=== PATIENT | male | born 1990 | race American Indian/Alaskan Native ===

== ENCOUNTER 2016-10-01 08:03 | Emergency (ER) | payer SELFPAY ==
[2016-10-01 08:16] VITALS: BP 148/97
--- NOTE | 2016-10-01 08:30 | Emergency Department Report ---
HPI - General Chief Complaint: Urogenital-Male Time Seen by Provider: 10/01/16 08:18 - HPI HPI: 25-year-old male presents today stating that he thinks he has chlamydia. Positive for unprotected sex and his sex partner has recently been diagnosed with chlamydia. Positive for history of chlamydia. Complaining of bilateral testicular pain, burning upon urination 1.5 weeks. Admits to having minimal white discharge. Denies blood in urine, increased urinary frequency or urgency. Denies fever, chills, nausea, vomiting, chest pain, shortness of breath, abdominal pain. ED Past Medical Hx - Past Medical History Hx Hypertension: Yes Hx Psychiatric Treatment: Yes (Bipolar, Schizophrenia) Additional medical history: schizphrenia - Surgical History Past Surgical History?: No - Social History Smoking Status: Current Every Day Smoker Substance Use Type: Alcohol - Medications Home Medications: Home Medications Medication Instructions Recorded Confirmed Last Taken Type Acetaminophen/Codeine [Tylenol #3] 1 tab PO Q6H PRN #25 tab 03/19/15 Unknown Rx Ibuprofen [Motrin] 600 mg PO Q8H PRN #50 tablet 03/19/15 Unknown Rx Phenazopyridine [Pyridium] 200 mg PO Q8H #9 tab 08/24/15 Unknown Rx metroNIDAZOLE [Flagyl] 500 mg PO Q8HR #21 tablet 08/24/15 Unknown Rx Acetamin/Codeine 120-12Mg/5 ml 10 ml PO TID PRN #60 ml 11/06/15 Unknown Rx [Tylenol/Codeine] Amoxicillin [Amoxicillin TAB] 875 mg PO BID #20 tablet 11/06/15 Unknown Rx ED Review of Systems ROS: Stated complaint: POSS STD Other details as noted in HPI Constitutional: denies: chills, fever, malaise Eyes: denies: eye pain ENT: denies: ear pain, throat pain, congestion Respiratory: denies: cough, shortness of breath, wheezing Cardiovascular: denies: chest pain, palpitations Endocrine: no symptoms reported Gastrointestinal: denies: abdominal pain, nausea, vomiting Genitourinary: dysuria, discharge, testicular pain. denies: urgency, frequency , hematuria, testicular mass Musculoskeletal: denies: back pain Skin: denies: rash Neurological: denies: headache, weakness Physical Exam - Physical Exam Vital Signs: Vital Signs 10/01/16 08:13 Temperature 98.8 F Pulse Rate 68 Respiratory 16 Rate Blood Pressure 148/97 Blood Pressure 148/97 [Left] O2 Sat by Pulse 98 Oximetry Physical Exam: GENERAL: The patient is well-developed and well-nourished. Patient is in NAD. HEAD: Normocephalic. Atraumatic. CHEST/LUNGS: Clear to auscultation throughout. HEART/CARDIOVASCULAR: Regular rate and rhythm. No murmurs, rubs or gallops. ABDOMEN: Abdomen is soft, nontender. No guarding or rebound tenderness. Negative for CVA tenderness bilaterally. GENITALS: Normal external genitalia. No testicular tenderness to palpation bilaterally. No discharge or bleeding noted. EXTREMITIES: Peripheral pulses intact. Capillary refill less than 2 seconds. NEURO: Alert and oriented x 3. Normal gait. ED Course Vital Signs 10/01/16 08:13 Temperature 98.8 F Pulse Rate 68 Respiratory 16 Rate Blood Pressure 148/97 Blood Pressure 148/97 [Left] O2 Sat by Pulse 98 Oximetry ED Medical Decision Making - Lab Data Vital Signs 10/01/16 08:13 Temperature 98.8 F Pulse Rate 68 Respiratory 16 Rate Blood Pressure 148/97 Blood Pressure 148/97 [Left] O2 Sat by Pulse 98 Oximetry Lab Results 10/01/16 Range/Units 08:50 Urine Color Yellow (Yellow) Urine Turbidity Clear (Clear) Urine pH 5.0 (5.0-7.0) Ur Specific [place] 1.026 (1.003-1.030) Urine Protein <15 mg/dl (Negative) mg/dL Urine Glucose (UA) Neg (Negative) mg/dL Urine Ketones Tr (Negative) mg/dL Urine Blood Neg (Negative) Urine Nitrite Neg (Negative) Urine Bilirubin Neg (Negative) Urine Urobilinogen 2.0 (<2.0) mg/dL Ur Leukocyte Esterase Neg (Negative) Urine WBC (Auto) 8.0 H (0.0-6.0) /HPF Urine RBC (Auto) 6.0 (0.0-6.0) /HPF Urine Mucus Few /HPF - Radiology Data Radiology results: report reviewed ULTRASOUND SCROTAL INDICATION: Testicular pain. COMPARISON: 08/13/2013. FINDINGS: Longitudinal and transverse grayscale and color flow sonographic evaluation of the scrotum and its contents demonstrates normal testicular contour and echotexture bilaterally without suspicious intrinsic lesions. Preserved bilateral blood flow. Right testicle estimated at 4.6 x 1.9 x 2.8 cm while the left testicle is 4.2 x 2 x 2.7 cm. No significant hydrocele. Normal bilateral epididymi, measuring 7-8 mm. CONCLUSION: No acute testicular sonographic abnormality, as described. - Medical Decision Making 25-year-old male presents today with testicular pain, dysuria, penile discharge post exposure to chlamydia. His urinalysis reveals mildly elevated WBC. His scrotal ultrasound is unremarkable. Patient has been treated with azithromycin and ceftriaxone today. Patient is in no acute distress at this time. He will be discharged home and is encouraged to follow up with a primary care provider. E is encouraged to return to the emergency room for any worsening symptoms. Critical care attestation.: If time is entered above; I have spent that time in minutes in the direct care of this critically ill patient, excluding procedure time. ED Disposition Clinical Impression: Testicular pain, Penile discharge, Exposure to chlamydia Disposition: DISCHARGED TO HOME OR SELFCARE Is pt being admited?: No Does the pt Need Aspirin: No Condition: Stable Instructions: Chlamydia Infection (ED), Testicle Pain (ED) Additional Instructions: Follow-up with primary care provider. Return to the emergency department if symptoms worsen. Referrals: PRIMARY CARE, [Primary Care Provider] - 3-5 Days [facility] [Outside] - 3-5 Days Forms: Work/School Release Form(ED) Time of Disposition: 10:18
[2016-10-01 09:06] LABS: Bilirubin,Urine NEG (Negative); Blood,Urine NEG (Negative); Ketones,Urine TR mg/dL (Negative); Leukocyte Esterase,Urine NEG (Negative); Mucus,Urine FEW /HPF; Nitrite,Urine NEG (Negative); Protein,Urine <15 mg/dL mg/dL (Negative)
--- NOTE | 2016-10-01 09:48 | Ultrasound Report ---
ULTRASOUND SCROTAL INDICATION: Testicular pain. COMPARISON: 08/13/2013. FINDINGS: Longitudinal and transverse grayscale and color flow sonographic evaluation of the scrotum and its contents demonstrates normal testicular contour and echotexture bilaterally without suspicious intrinsic lesions. Preserved bilateral blood flow. Right testicle estimated at 4.6 x 1.9 x 2.8 cm while the left testicle is 4.2 x 2 x 2.7 cm. No significant hydrocele. Normal bilateral epididymi, measuring 7-8 mm. CONCLUSION: No acute testicular sonographic abnormality, as described. Thank you for the opportunity to participate in this patient's care.
[2016-10-01] MEDS ORDERED: ROCEPHIN IM ONE (09:54)
[2016-10-01] MEDS ORDERED: XYLOCAINE 1% MPF 5 mL INFILTRATI ONE (09:54)
[2016-10-01] MEDS ORDERED: ZITHROMAX PO ONE (09:54)
== END 2016-10-01 10:31 | disposition home or self-care (01) ==
LOC: ED 08:03
DX: N50.819 Testicular pain, unspecified (principal); R36.9 Urethral discharge, unspecified; I10 Essential (primary) hypertension; F31.9 Bipolar disorder, unspecified; F20.9 Schizophrenia, unspecified; F17.200 Nicotine dependence, unspecified, uncomplicated; Z20.2 Contact with and (suspected) exposure to infections with a predominantly sexual mode of transmission
CPT/HCPCS: 81001; 87591; 93975; 96372; 99284; J0696